=== PATIENT | male | born 1935 | race Caucasian/White ===

== ENCOUNTER 2016-07-07 07:55 | Emergency (ER) | payer MEDICARE ==
--- NOTE | 2016-07-07 09:40 | ERRECORD ---
[facility] EMERGENCY RECORD HPI HEAD INJURY (08:19 JPIP) CHIEF COMPLAINT: Patient presents for evaluation of head injury, Patient presents for evaluation of Fell in the dining room at the [facility]. HISTORIAN: History provided by patient, Additional history obtained from [facility], Additional history obtained from EMS. MECHANISM OF INJURY: Mechanism of injury fall, from standing, landing on head. LOCATION: No localizing symptoms, asymptomatic at this time. SEVERITY: Current severity of pain rated as 0/10. TIME COURSE: Sudden onset of symptoms, 2, hours prior to arrival, Symptoms have resolved. ASSOCIATED WITH: No associated dizziness, No associated headache, No associated loss of consciousness, No associated nausea, No associated open wounds, no associated siezure, No associated swelling, No associated weakness. EXACERBATED BY: Patient's condition exacerbated by nothing. RELIEVED BY: Patient's condition relieved by time. RISK FACTORS: Intracranial bleed risk factors, advanced age. ROS (08:35 JPIP) EYES: Historian denies vision changes. ENT: Historian denies otorrhea, denies rhinorrhea. GI: Historian denies nausea, denies vomiting. SKIN: Historian denies skin changes, denies skin lesions. NEUROLOGIC: Historian denies lethargy, denies mental status changes. NOTES: All systems reviewed, negative except as described above. 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 Past medical history includes cardiac history, arrhythmia, atrial fibrillation, Notes: prostate cancer, hypokalemia , Past medical history includes history of hypertension Verified 07/07/16. (08:06 LGIB) MALE SURGICAL HISTORY: Surgical history of hernia repair, LEFT SHOULDER, COLOSTOMY, PEG TUBE-since removed, Surgical history of appendectomy, Surgical history of coronary artery bypass graft surgery, five vessels, Surgical history of orthopedic surgery, L SHOULDER, Surgical history of prostatectomy. Verified 07/07/16. (08:06 LGIB) PSYCHIATRIC HISTORY: No previous psychiatric history. Verified 07/07/16. (08:06 LGIB) SOCIAL HISTORY: Patient has no smoking history, Patient denies alcohol use, Patient denies drug use. Verified 07/07/16. (08:06 LGIB) NOTES: Nursing records reviewed, Medication list reviewed. (08:38 JPIP) KNOWN ALLERGIES &a-1R&a+25V*p+0X*r6320F*c202B*c15G*c2P*p-0X&a-25V&a+1R Name: Asif Douglas : 1935 M80 MedRec: [id number] AcctNum: [id number] Prepared: Tere Jul 07, 2016 09:38 by Interface Page 1 of 4 pMD [facility] EMERGENCY RECORD Penicillins CURRENT MEDICATIONS Lanoxin: TABLET : Strength - 125 mcg : ORAL Patient Dose: 125 mg Oral once a day. (08:18 KMOR) Plavix: TABLET : Strength - 75 mg : ORAL Patient Dose: 75 mg Oral once a day. (08:18 KMOR) Fish Oil: CAPSULE : Strength - 1,000 mg : ORAL Patient Dose: 1000 mg Oral once a day. (08:18 KMOR) coenzyme Q10: CAPSULE : Strength - 50 mg : ORAL Patient Dose: 50 g Oral once a day. (08:18 KMOR) aspirin: TABLET : Strength - 325 mg : ORAL Patient Dose: 325 mg Oral once a day. (08:18 KMOR) Levemir: VIAL (ML) : Strength - 100 unit/mL : SUBCUTANEOUS Patient Dose: 20 units Subcutaneous once a day (in the evening). (08:18 KMOR) Colace: CAPSULE : Strength - 100 mg : ORAL Patient Dose: 1 tab(s) Oral once a day. (08:20 LGIB) FLUoxetine: CAPSULE : Strength - 10 mg : ORAL Patient Dose: 1 tab(s) Oral once a day. (08:21 LGIB) mirtazapine: TABLET : Strength - 7.5 mg : ORAL Patient Dose: 1 tab(s) Oral once a day (at bedtime). (08:21 LGIB) Pepcid: TABLET : Strength - 20 mg : ORAL Patient Dose: 1 tab(s) Oral once a day (at bedtime). (08:22 LGIB) RisperDAL: TABLET : Strength - 0.5 mg : ORAL Patient Dose: 1 tab(s) Oral once a day. (08:22 LGIB) TABLET : Strength - 1 mg : ORAL Patient Dose: 1 tab(s) Oral once a day (at bedtime). (08:23 LGIB) simvastatin: TABLET : Strength - 20 mg : ORAL Patient Dose: 1 tab(s) Oral once a day (in the evening). (08:24 LGIB) metFORMIN: TABLET : Strength - 500 mg : ORAL Patient Dose: 1 tab(s) Oral 2 times a day. (08:24 LGIB) &a-1R&a+25V*p+0X*x9442S*c202B*c15G*c2P*p-0X&a-25V&a+1R Name: Asif Douglas : 1935 M80 MedRec: [id number] AcctNum: [id number] Prepared: Tere Jul 07, 2016 09:38 by Interface Page 2 of 4 pMD [facility] EMERGENCY RECORD promethazine: TABLET : Strength - 12.5 mg : ORAL Patient Dose: 1 tab(s) Oral every 6 hours PRN. (08:24 LGIB) traMADol: TABLET : Strength - 50 mg : ORAL Patient Dose: 1 tab(s) Oral every 6 hours PRN. (08:25 LGIB) VITAL SIGNS (08:01 LGIB) VITAL SIGNS: BP: 116/73, Pulse: 70, Resp: 18 (Non-Labored), Temp: 97.5 (Oral), Pain: 0, O2 sat: 95 on Room Air, Time: 07/07/2016 08:01. PHYSICAL EXAM (08:36 JPIP) CONSTITUTIONAL: Vital Signs Reviewed, Patient afebrile, Pulse normal, Blood pressure normal, Respiratory rate normal, Patient appears pain free, Patient, A&O X 1 - person. HEAD: no Harrison's sign, No racoon sign, No contusions, no abrasions, No Lacerations, normocephalic. EYES: Eye exam included findings of eyelids normal to inspection, Conjunctiva normal, Sclera normal, no periorbital ecchymosis, no periorbital edema, no periorbital erythema. ENT: Ear exam normal, external ear normal, no drainage, no bleeding, Nose exam normal, no bleeding from nares, no cerebral spinal fluids drainage, Pharynx exam normal, not injected, symmetrical, Uvula exam normal, midline, no edema. NECK: Neck exam included findings of normal range of motion, Trachea midline, no cervical adenopathy, no tenderness. RESPIRATORY CHEST: Respiratory exam included findings of no respiratory distress, Breath sounds clear, No wheezing, No rales, No rhonchi, Breath sounds not absent, Breath sounds not diminished. CARDIOVASCULAR: Cardiovascular exam included findings of heart rate regular rate and rhythm, Heart sounds normal. ABDOMEN MALE: Abdominal exam included findings of abdomen nontender, Liver normal, Spleen normal. UPPER EXTREMITY: Upper extremity exam included findings of inspection normal, Range of motion normal. LOWER EXTREMITY: Lower extremity exam included findings of inspection normal, Range of motion normal. NEURO: [place] coma scale 15. SKIN: Skin exam included findings of skin warm, dry, and normal in color. LYMPHATIC: Lymphatic exam included findings of cervical nodes normal, Submandibular normal. PSYCHIATRIC: Normal affect. PROBLEM LIST No recorded problems DIAGNOSIS (08:39 JPIP) FINAL: PRIMARY: Head injury, no LOC, ADDITIONAL: head contusion. &a-1R&a+25V*p+0X*o3519J*c202B*c15G*c2P*p-0X&a-25V&a+1R Name: Asif Douglas DOB: 1935 80 MedRec: [id number] AcctNum: [id number] Prepared: Tere Jul 07, 2016 09:38 by Interface Page 3 of 4 pMD [facility] EMERGENCY RECORD PRESCRIPTION No recorded prescriptions DISPOSITION PATIENT: Disposition Type: Discharge, Disposition: *Discharge Home, Condition: Good. (08:39 JPIP) Patient left the department. (09:33 KMOR) Burk: JPIP=DO Bryant Joseph KMOR=HANS Springer, Frances LGIB=HANS Schaffer, Danni &a-1R&a+25V*p+0X*s0279M*c202B*c15G*c2P*p-0X&a-25V&a+1R Name: Asif Douglas DOB: 1935 M80 MedRec: [id number] AcctNum: [id number] Prepared: Tere Jul 07, 2016 09:38 by Interface Page 4 of 4 pMD MTDD
--- NOTE | 2016-07-07 09:46 | PICIS ---
[facility] EMERGENCY RECORD COMMUNICATIONS (08:32 LGIB) COMMUNICATIONS: Notes: called Garrett Burger to arrange transport back to [place]. 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 pt has no complaints. (08:00 LGIB) PATIENT: NAME: Asif Douglas, AGE: 80, GENDER: male, : Fri1935, TIME OF GREET: Sun Jul 07, 2016 07:57, PREFERRED LANGUAGE: [place]an, ETHNICITY: Not or , ECODE BILLING MAP: [facility], SSN: [id number], Zip Code: [address], KG WEIGHT: 65.77, PHONE: , , , PERSON ID: [id number], PAYMENT: [employer]. (08:00 LGIB) COMPLAINT: fall. (08:00 LGIB) ADMISSION: URGENCY: 4 Non Urgent, ADMISSION SOURCE: Jail, AMBULANCE: [facility], TRANSPORT: AMBULANCE - [facility], BED: ER -02. (08:00 LGIB) SIRS SCORING: Heart Rate 55-109 (0), Temp range 96.8-101.1 (0), respiratory rate 12-24 (0), Mental Status altered: no (0). (08:06 LGIB) PROVIDERS: TRIAGE NURSE: Danni Schaffer RN. (08:00 LGIB) PREVIOUS VISIT ALLERGIES: leiva, peas, Penicillins. (08:00 LGIB) leiva, peas, Penicillins. (08:06 LGIB) KNOWN ALLERGIES Penicillins CURRENT MEDICATIONS Lanoxin: TABLET : Strength - 125 mcg : ORAL Patient Dose: 125 mg Oral once a day. (08:18 KMOR) Plavix: TABLET : Strength - 75 mg : ORAL Patient Dose: 75 mg Oral once a day. (08:18 KMOR) Fish Oil: CAPSULE : Strength - 1,000 mg : ORAL Patient Dose: 1000 mg Oral once a day. (08:18 KMOR) coenzyme Q10: CAPSULE : Strength - 50 mg : ORAL Patient Dose: 50 g Oral once a day. (08:18 KMOR) aspirin: TABLET : Strength - 325 mg : ORAL Patient Dose: 325 mg Oral once a day. (08:18 KMOR) Levemir: VIAL (ML) : Strength - 100 unit/mL : SUBCUTANEOUS Patient Dose: 20 units Subcutaneous once a day (in the evening). (08:18 KMOR) Colace: CAPSULE : Strength - 100 mg : ORAL &a-1R&a+25V*p+0X*y3873R*c202B*c15G*c2P*p-0X&a-25V&a+1R Name: Asif Douglas : 1935 M80 MedRec: [id number] AcctNum: [id number] Prepared: Tere Jul 07, 2016 09:44 by Interface Page 1 of 6 pMD [facility] EMERGENCY RECORD Patient Dose: 1 tab(s) Oral once a day. (08:20 LGIB) FLUoxetine: CAPSULE : Strength - 10 mg : ORAL Patient Dose: 1 tab(s) Oral once a day. (08:21 LGIB) mirtazapine: TABLET : Strength - 7.5 mg : ORAL Patient Dose: 1 tab(s) Oral once a day (at bedtime). (08:21 LGIB) Pepcid: TABLET : Strength - 20 mg : ORAL Patient Dose: 1 tab(s) Oral once a day (at bedtime). (08:22 LGIB) RisperDAL: TABLET : Strength - 0.5 mg : ORAL Patient Dose: 1 tab(s) Oral once a day. (08:22 LGIB) TABLET : Strength - 1 mg : ORAL Patient Dose: 1 tab(s) Oral once a day (at bedtime). (08:23 LGIB) simvastatin: TABLET : Strength - 20 mg : ORAL Patient Dose: 1 tab(s) Oral once a day (in the evening). (08:24 LGIB) metFORMIN: TABLET : Strength - 500 mg : ORAL Patient Dose: 1 tab(s) Oral 2 times a day. (08:24 LGIB) promethazine: TABLET : Strength - 12.5 mg : ORAL Patient Dose: 1 tab(s) Oral every 6 hours PRN. (08:24 LGIB) traMADol: TABLET : Strength - 50 mg : ORAL Patient Dose: 1 tab(s) Oral every 6 hours PRN. (08:25 LGIB) VITAL SIGNS (08:01 LGIB) VITAL SIGNS: BP: 116/73, Pulse: 70, Resp: 18 (Non-Labored), Temp: 97.5 (Oral), Pain: 0, O2 sat: 95 on Room Air, Time: 07/07/2016 08:01. NURSING ASSESSMENT: NEURO (08:09 LGIB) GCS: (6) Obeying command:, (5) Orientated:, (4) Spontaneous eye opening., Result: 15. CONSTITUTIONAL: Complex assessment performed, Patient arrives, via [facility], History obtained from, [facility], Patient appears comfortable, Patient cooperative, Patient alert, Patient is, oriented to person, Skin warm, Skin dry, Skin normal in color, Mucous membranes pink, Mucous membranes moist, Patient is well-groomed, Patient complains of fall, per EMS and [place] staff, pt fell 2 hours ago in the dining room. Pt did hit his head. No reported LOC. Pt complained of a slight headache but on arrival to ER does not have any complaints and denies pain. &a-1R&a+25V*p+0X*l1035T*c202B*c15G*c2P*p-0X&a-25V&a+1R Name: Asif Douglas : 1935 M80 MedRec: [id number] AcctNum: [id number] Prepared: Tere Jul 07, 2016 09:44 by Interface Page 2 of 6 pMD [facility] EMERGENCY RECORD PAIN: Patient rates pain as 0 out of 10. NEURO: Pupils equally round and reactive to light, Left pupil 2 mm in size, Right pupil 2 mm in size, Able to close eyes, Face symmetrical, Speech normal, Hand grasps equal, Upper extremity strength strong, no numbness to upper extremities, Lower extremity strength strong, Foot press equal, no numbness to lower extremities, no associated loss of consciousness, no associated vomiting, no associated weakness. ENT: Ear assessment findings include ear normal to inspection, Nasal assessment findings include nose normal to inspection, Mouth and throat assessment findings include mouth inspection normal. SAFETY: Side rails up, Cart/Stretcher in lowest position, Call light within reach, Hospital ID band on. NURSING ASSESSMENT: TUBES AND PORTS (08:20 KMOR) TUBES AND PORTS: Colostomy present, to LLQ, draining large amount, of soft stool, No signs of infection at site. NOTES: Patient tolerated procedure well. NURSING PROCEDURE: TRANSPORT TO TESTS TRANSPORT TO TESTS: Transport indicated to facilitate diagnosis, Patient transported to CT scan, via cart, Accompanied by x-ray central sterilization technician. (08:16 LGIB) FOLLOW-UP: After procedure, patient returned to emergency department. (08:26 LGIB) ORDER DETAILS Order Name: CT Brain WO Con, Status: Active, Time: 08:05 07/07/2016, User: [email or web address], - Ordered for: DO Bryant Joseph, - Entered by: HANS Springer, Frances - Tere Jul 07, 2016 08:05, - Quantity: 1. HPI HEAD INJURY (08:19 JPIP) CHIEF COMPLAINT: Patient presents for evaluation of head injury, Patient presents for evaluation of Fell in the dining room at the long term. HISTORIAN: History provided by patient, Additional history obtained from long term, Additional history obtained from EMS. MECHANISM OF INJURY: Mechanism of injury fall, from standing, landing on head. LOCATION: No localizing symptoms, asymptomatic at this time. SEVERITY: Current severity of pain rated as 0/10. TIME COURSE: Sudden onset of symptoms, 2, hours prior to arrival, Symptoms have resolved. ASSOCIATED WITH: No associated dizziness, No associated headache, No associated loss of consciousness, No associated nausea, No associated open wounds, no associated siezure, No associated swelling, No associated weakness. EXACERBATED BY: Patient's &a-1R&a+25V*p+0X*k4469T*c202B*c15G*c2P*p-0X&a-25V&a+1R Name: DouglasAsif : 1935 M80 MedRec: [id number] AcctNum: [id number] Prepared: Tere Jul 07, 2016 09:44 by Interface Page 3 of 6 pMD [facility] EMERGENCY RECORD condition exacerbated by nothing. RELIEVED BY: Patient's condition relieved by time. RISK FACTORS: Intracranial bleed risk factors, advanced age. ROS (08:35 JPIP) EYES: Historian denies vision changes. ENT: Historian denies otorrhea, denies rhinorrhea. GI: Historian denies nausea, denies vomiting. SKIN: Historian denies skin changes, denies skin lesions. NEUROLOGIC: Historian denies lethargy, denies mental status changes. NOTES: All systems reviewed, negative except as described above. PAST MEDICAL HISTORY MEDICAL HISTORY: ALZHEIMER'S, DIABETES, [place], COLOSTOMY BAG, CVA IN OCTOBER 2011, BILATERAL CHRONIC SHOULDER ISSUES. Past medical history includes cardiac history, arrhythmia, atrial fibrillation, Notes: prostate cancer, hypokalemia , Past medical history includes history of hypertension Verified 07/07/16. (08:06 LGIB) MALE SURGICAL HISTORY: Surgical history of hernia repair, LEFT SHOULDER, COLOSTOMY, PEG TUBE-since removed, Surgical history of appendectomy, Surgical history of coronary artery bypass graft surgery, five vessels, Surgical history of orthopedic surgery, L SHOULDER, Surgical history of prostatectomy. Verified 07/07/16. (08:06 LGIB) PSYCHIATRIC HISTORY: No previous psychiatric history. Verified 07/07/16. (08:06 LGIB) SOCIAL HISTORY: Patient has no smoking history, Patient denies alcohol use, Patient denies drug use. Verified 07/07/16. (08:06 LGIB) NOTES: Nursing records reviewed, Medication list reviewed. (08:38 JPIP) PHYSICAL EXAM (08:36 JPIP) CONSTITUTIONAL: Vital Signs Reviewed, Patient afebrile, Pulse normal, Blood pressure normal, Respiratory rate normal, Patient appears pain free, Patient, A&O X 1 - person. HEAD: no Harrison's sign, No racoon sign, No contusions, no abrasions, No Lacerations, normocephalic. EYES: Eye exam included findings of eyelids normal to inspection, Conjunctiva normal, Sclera normal, no periorbital ecchymosis, no periorbital edema, no periorbital erythema. ENT: Ear exam normal, external ear normal, no drainage, no bleeding, Nose exam normal, no bleeding from nares, no cerebral spinal fluids drainage, Pharynx exam normal, not injected, symmetrical, Uvula exam normal, midline, no edema. NECK: Neck exam included findings of normal range of motion, Trachea midline, no cervical adenopathy, no tenderness. RESPIRATORY CHEST: Respiratory exam included findings of no respiratory distress, Breath sounds clear, No wheezing, No rales, No &a-1R&a+25V*p+0X*x8027T*c202B*c15G*c2P*p-0X&a-25V&a+1R Name: Asif Douglas : 1935 M80 MedRec: [id number] AcctNum: [id number] Prepared: Tere Jul 07, 2016 09:44 by Interface Page 4 of 6 pMD [facility] EMERGENCY RECORD rhonchi, Breath sounds not absent, Breath sounds not diminished. CARDIOVASCULAR: Cardiovascular exam included findings of heart rate regular rate and rhythm, Heart sounds normal. ABDOMEN MALE: Abdominal exam included findings of abdomen nontender, Liver normal, Spleen normal. UPPER EXTREMITY: Upper extremity exam included findings of inspection normal, Range of motion normal. LOWER EXTREMITY: Lower extremity exam included findings of inspection normal, Range of motion normal. NEURO: [place] coma scale 15. SKIN: Skin exam included findings of skin warm, dry, and normal in color. LYMPHATIC: Lymphatic exam included findings of cervical nodes normal, Submandibular normal. PSYCHIATRIC: Normal affect. EVENTS TRANSFER: Triage to Emergency Emergency Room -02. (Tere Jul 07, 2016 08:00 LGIB) Removed from Emergency Emergency Room -02. (09:33 KMOR) O2SAT INTERPRETATION (08:38 JPIP) O2SAT: Continuous pulse oximetry, Oxygen saturation 95%, on room air, Oxygen saturation interpretation: Normal, No intervention required. PROBLEM LIST No recorded problems DIAGNOSIS (08:39 JPIP) FINAL: PRIMARY: Head injury, no LOC, ADDITIONAL: head contusion. DISPOSITION PATIENT: Disposition Type: Discharge, Disposition: *Discharge Home, Condition: Good. (08:39 JPIP) Patient left the department. (09:33 KMOR) INSTRUCTION (08:39 JPIP) DISCHARGE: CLOSED HEAD INJURY NO WAKEUP ADULT. FOLLOWUP: DO GROSS KRISTEL, [facility], [address] [place] [id number], [phone]. SPECIAL: Follow up with Primary Care Physician within 72 hours Return to the Emergency Department for increased symptoms problems or concerns Take acetaminophen or ibuprofen for pain. PRESCRIPTION No recorded prescriptions Burk: &a-1R&a+25V*p+0X*p9289O*c202B*c15G*c2P*p-0X&a-25V&a+1R Name: Asif Douglas : 1935 M80 MedRec: [id number] AcctNum: [id number] Prepared: Tere Jul 07, 2016 09:44 by Interface Page 5 of 6 pMD [facility] EMERGENCY RECORD RUBENIP=DO Bryant Joseph KMOR=HANS Springer, Frances LGIB=HANS Schaffer, Danni &a-1R&a+25V*p+0X*k3629I*c202B*c15G*c2P*p-0X&a-25V&a+1R Name: Asif Douglas : 1935 M80 MedRec: [id number] AcctNum: [id number] Prepared: Tere Jul 07, 2016 09:44 by Interface Page 6 of 6 pMD MTDD
--- NOTE | 2016-07-07 16:05 | CT ---
CT OF THE BRAIN WITHOUT CONTRAST 07/07/2016 Comparison is made with a 04/08/2016 study from [facility]. There has been no adverse intr acranial findings. 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 No intracranial bleeding or extraaxial hematoma was seen. Diffuse atrophy and moderate compensatory dilatation of the ventr icles is present as before. There is no sign of acute stroke. The calvarium appears intact. There is no air fluid level in the sphenoid sinus, and the mastoid air cells are clear. IMPRESSION: Atrophy and old ischemic changes, but no acute intracranial findings. POS: HOME
== END 2016-07-07 09:33 ==
LOC: BURERS 07:55
DX: S00.93XA Contusion of unspecified part of head, initial encounter (principal); I48.91 Unspecified atrial fibrillation; Z90.49 Acquired absence of other specified parts of digestive tract; W18.30XA Fall on same level, unspecified, initial encounter; Y92.128 Other place in nursing home as the place of occurrence of the external cause
CPT/HCPCS: 70450